=== PATIENT | female | born 1985 | race Caucasian/White ===

== ENCOUNTER 2016-10-24 03:33 | Emergency (ER) | payer OTHER ==
[2016-10-24 03:48] VITALS: BP 106/64; PULSE 84; TEMP 98.4; BMI 25.0
[2016-10-24] MEDS ORDERED: ACETAMINOPHEN 500 MG TABLET (FP) PO ONE (03:59)
--- NOTE | 2016-10-24 04:01 | PDOC ---
History of Present Illness - General Chief Complaint: Pain, Acute Stated Complaint: LEFT NECK PAIN INTO BACK Time Seen by Provider: 10/24/16 03:56 History Source: Patient Exam Limitations: No Limitations - History of Present Illness Initial Comments: 10/24/16 03:57 This is a 31-year-old female who comes in complaining of left-sided neck pain and spasm. Patient took Advil for the pain without relief. Patient is and doesn't know what else she can take. Patient denies any other complaints. PAST MEDICAL HISTORY: no significant history PAST SURGICAL HISTORY: no significant history FAMILY HISTORY: no pertinant history SOCIAL HISTORY: Pt lives with family and is employed. MEDICATIONS: reviewed ALLERGIES: As per nursing notes Review of Systems General: No fevers or chills, no weakness, no weight loss HEENT: No change in vision. No sore throat,. No ear pain, neck pain CardioVascular: No chest pain or shortness of breath Respiratory:No cough, or wheezing. Gastrointestinal: no nausea, vomitting, diarrhea or constipation, No rectal bleeding Genitourinary: No dysuria, hematuria, or frequency Musculoskeletal: No joint or muscle pain or swelling Neurologic: No headache, vertigo, dizziness or loss of consciousness Psychiatric: nor depression Skin: No rashes or easy bruising Endocrine: no increased thirst or abnormal weight change Allergic: no skin or latex allergy All other systems reviewed and normal GENERAL: The patient is awake, alert, and fully oriented, in no acute distress. HEAD: Normal with no signs of trauma. Neck: There is tenderness and paraspinal spasm on palpation of the left side of the neck muscles and left upper shoulder area. Neurovascular is intact. EYES: Pupils equal, round and reactive to light, extraocular movements intact, sclera anicteric, conjunctiva clear. EXTREMITIES: Normal range of motion, no edema. NEUROLOGICAL: Normal speech, normal gait. PSYCH: Normal mood, normal affect. SKIN: Warm, Dry, normal turgor, no rashes or lesions noted. Past History - Past Medical History Allergies/Adverse Reactions: Allergies Allergy/AdvReac Type Severity Reaction Status Date / Time No Known Allergies Allergy Verified 10/24/16 03:34 Home Medications: Ambulatory Orders NK [No Known Home Medication] 10/24/16 Kidney Stones: Yes (LITHOTRIPSY) - Reproductive History Is Patient Now?: Yes (#): 1 Para: 0 Cervical CA: No Dysfunctional Uterine Bleeding: No Ectopic : No Endometrial CA: No Polycystic Ovaries: No Therapeutic (s) & number: No Tubal Ligation: No Spontaneous : 0 - Immunization History Td Vaccination: Yes Immunization Up to Date: Yes - Psycho/Social/Smoking Cessation Hx Anxiety: Yes Suicidal Ideation: No Smoking Status: No Smoking History: Former smoker Have you smoked in the past 12 months: Yes Number of Cigarettes Smoked Daily: 0 If you are a former smoker, when did you quit?: 2 YEARS AGO Information on smoking cessation initiated: No 'Breaking Loose' booklet given: 10/01/14 Hx Alcohol Use: No Drug/Substance Use Hx: No Substance Use Type: None *Physical Exam - Vital Signs Last Vital Signs Temp Pulse Resp BP Pulse Ox 98.4 F 84 20 106/64 100 10/24/16 03:34 10/24/16 03:34 10/24/16 03:34 10/24/16 03:34 10/24/16 03:34 *DC/Admit/Observation/Transfer Diagnosis at time of Disposition: Strain of neck muscle Qualifiers: Encounter type: initial encounter Qualified Code(s): S16.1XXA - Strain of muscle, fascia and tendon at neck level, initial encounter - Discharge Dispostion Disposition: HOME Condition at time of disposition: Stable Admit: No - Patient Instructions Additional Instructions: For the pain you can take Tylenol or ibuprofen. Return to the emergency department immediately with ANY new, persistent or worsening symptoms. Continue any medications as previously prescribed by your physician. You should follow up with your primary doctor as soon as possible regarding today's emergency department visit. . Please make sure your doctor reviews the results of your emergency evaluation. Thank you for coming to the Emergency Department today for your care. It was a pleasure to see you today. Please note that your evaluation is INCOMPLETE until you follow-up with your doctor.
== END 2016-10-24 04:09 | disposition home or self-care (01) ==
LOC: FER 03:33
DX: O26.899 Other specified pregnancy related conditions, unspecified trimester (principal); S16.1XXA Strain of muscle, fascia and tendon at neck level, initial encounter; Z3A.00 Weeks of gestation of pregnancy not specified; Z87.891 Personal history of nicotine dependence; X58.XXXA Exposure to other specified factors, initial encounter; Y93.89 Activity, other specified; Y92.9 Unspecified place or not applicable
CPT/HCPCS: 99282-25

== ENCOUNTER 2017-04-23 08:06 | Inpatient (IN) | payer OTHER ==
[2017-04-23] MEDS ORDERED: ELECTROLYTE-148 SOLN 500 ML IV ONE (09:00)
[2017-04-23] MEDS ORDERED: [UNRECOGNIZED DRUG - OTHER] EP ONE (09:07)
[2017-04-23] MEDS ORDERED: BUPIVACAINE EP ONE (09:07)
[2017-04-23] MEDS ORDERED: FENTANYL EP ONE (09:07)
[2017-04-23] MEDS ORDERED: NALOXONE HCL 0.4 MG/ML VIAL IVPUSH PRN (09:28)
[2017-04-23] MEDS ORDERED: FENTANYL/BUPIVACAINE/NS/PF - PCEA - 50 ML DISP.SYRIN EP ONE ×3 (09:28→18:28)
[2017-04-23] MEDS: ELECTROLYTE-148 SOLN 1,000 ML IV SCH (09:30)
[2017-04-23] MEDS ORDERED: FENTANYL/BUPIVACAINE/NS/PF - PCEA - 50 ML DISP.SYRIN EP SCH (09:30)
[2017-04-23 10:09] VITALS: BMI 29.7
[2017-04-23] MEDS ORDERED: AMPICILLIN - 2 GM in SODIUM CHLORIDE 100 ML IVPB ONE (10:09)
--- NOTE | 2017-04-23 11:10 | HP ---
Past Medical History - Admission History of Present Illness: 31 yo @ 40 0/7 wks by first trimester ultrasound, EDC 04/23/17 complicated by: GBS positive - no PCN allergy Patient presents with chief complaints of contractions. She was previously seen as an outpatient for N/V and was found to be 1-2 cm. on presentation, she was 4 cm. She reports movement, denies leakage of fluid or vaginal bleeding Limitations to Obtaining History: No Limitations - Past Medical History Cardiovascular: No: HTN Pulmonary: No: Asthma Gastrointestinal: No: GERD Renal/: Yes: Renal Calculi ...: 1 ...Para: 0 ...Term: 0 ...: 0 ...Spon : 0 ...Induced : 0 ...Multiple Gestation: 0 ...LMP: 07/21/16 ... Weeks Gestation by Dates: 39.3 ...EDC by Dates: 04/27/17 ...EDC by Sono: 04/23/17 - Past Surgical History Hx Myomectomy: No Hx Transabdominal Cerclage: No Additional Surgical History: Lithotripsy - Smoking History Smoking history: Never smoked Have you smoked in the past 12 months: No Aproximately how many cigarettes per day: 0 If you are a former smoker, when did you quit?: 2 YEARS AGO - Alcohol/Substance Use Hx Alcohol Use: No - Social History History of Recent Travel: No Home Medications - Allergies Allergies/Adverse Reactions: Allergies Allergy/AdvReac Type Severity Reaction Status Date / Time No Known Allergies Allergy Verified 04/23/17 08:43 - Home Medications Home Medications: Ambulatory Orders Pnv No.95/Ferrous Fum/Folic AC [ Formula] 1 each PO DAILY 04/22/17 Family Disease History - Family Disease History Family History: Denies Review of Systems - Review of Systems Constitutional: reports: No Symptoms Cardiovascular: reports: No Symptoms Respiratory: reports: No Symptoms Gastrointestinal: reports: Nausea Genitourinary: reports: No Symptoms Musculoskeletal: reports: No Symptoms Integumentary: reports: No Symptoms Neurological: reports: No Symptoms Hematology/Lymphatic: reports: No Symptoms Psychiatric: reports: No Symptoms Physical Exam - Maternity Vital Signs: Vital Signs Temperature 98.4 F 04/23/17 10:00 Pulse Rate 57 L 04/23/17 10:45 Respiratory Rate 17 04/23/17 10:45 Blood Pressure 120/60 04/23/17 10:45 O2 Sat by Pulse Oximetry (%) 99 04/23/17 10:45 Constitutional: Yes: Well Nourished, No Distress, Calm Cardiovascular: Yes: Regular Rate and Rhythm - Abdominal Exam/OB Contractions: Yes Regularity: Regular Category: I - Vaginal Exam/OB Dilatation (cm): 4 Effacement (%): 80 Amniotic Membrane Status: Intact Station: -1 - Physical Exam Psychiatric: Yes: Alert, Oriented Hemorrhage Risk Assessment - Risk Factors Medium Risk Factors: Yes: None High Risk Factors: Yes: None Risk Score: 1 Risk Level: Medium Risk Assessment/Plan 31 yo active labor 1. Admit to L&D 2. Consents reviewed and signed 3. Routine labs collected and sent 4. GBS positive 5. Desires epidural 6. Category I FHT 7. Will proceed with expectant management
[2017-04-23] MEDS: AMPICILLIN - 1 GM in SODIUM CHLORIDE 100 ML IVPB SCH ×3 (14:19→23:56)
--- NOTE | 2017-04-23 14:49 | PN ---
Progress Note (short form) - Note Progress Note: had episode of lauro , to 90 with good return , salp electode applied , LT side , o2 , will revaluate cx 7 to 8 cm 80 vx 0, arom, minimal fluid
[2017-04-23] MEDS ORDERED: TUBERCULIN PPD 5 TU/0.1ML SYRINGE (IN PATIENT USE ONLY) ID ONE (17:30)
[2017-04-23] MEDS ORDERED: AMPICILLIN SODIUM 1 GM VIAL ONE (18:11)
--- NOTE | 2017-04-23 18:13 | PN ---
Progress Note (short form) - Note Progress Note: 6 pm, cx 9 cm, 100 vx 0 fhr cat 2
[2017-04-23] MEDS ORDERED: GENTAMICIN SO4 80 MG/2 ML VIAL ONE (19:37)
[2017-04-23] MEDS ORDERED: ACETAMINOPHEN 325 MG TABLET (FP) ONE (19:38)
[2017-04-23] MEDS ORDERED: GENTAMICIN 80 MG PREMIXED IVPB 80 MG/100 ML BAG IVPB ONE (20:00)
[2017-04-23] MEDS ORDERED: OXYTOCIN 30 UNITS in 0.9% NS 30 UNIT/500 ML INFUS.BAG IVPB SCH ×3 (20:00→23:30)
[2017-04-23] MEDS ORDERED: OXYTOCIN 30 UNITS in 0.9% NS 30 UNIT/500 ML INFUS.BAG IVPB ONE (20:07)
--- NOTE | 2017-04-23 20:10 | PN ---
Progress Note (short form) - Note Progress Note: cx full 100 vx +! fhr cat 1, had temp 100.6 , r/o possible chorio, advised getamycin, ,monitor heart
[2017-04-23] MEDS ORDERED: ACETAMINOPHEN 325 MG TABLET (FP) PO ONE (20:12)
[2017-04-23] MEDS ORDERED: OXYTOCIN 20 UNITS in 0.9% NS 20 UNIT/1,000 ML INFUS.BAG IV ONE (20:18)
[2017-04-23] MEDS ORDERED: LIDOCAINE HCL 1% PRESERVATIVE FREE - 30ML VIAL ONE (20:59)
[2017-04-23] MEDS ORDERED: OXYTOCIN 20 UNITS in 0.9% NS 20 UNIT/1,000 ML INFUS.BAG IV SCH (21:20)
[2017-04-23] MEDS ORDERED: METHYLERGONOVINE MALEATE 0.2 MG/1 ML AMP IM PRN (21:40)
[2017-04-23] MEDS ORDERED: BENZOCAINE 20% 57 GM BOTTLE TP PRN (21:40)
[2017-04-23] MEDS ORDERED: BENZOCAINE 28 GM HEMORRHOIDAL OINTMENT TP PRN (21:40)
[2017-04-23] MEDS ORDERED: WITCH HAZEL 50% (TUCKS) 40 PAD/JAR PAD TP PRN (21:40)
[2017-04-23] MEDS ORDERED: oxyCODONE HCL 5 MG TABLET PO PRN (21:40)
[2017-04-23] MEDS ORDERED: BISACODYL 10 MG SUPP.RECT RC PRN (21:40)
--- NOTE | 2017-04-23 21:47 | PN ---
Delivery - Delivery Vaginal Delivery: Spontaneous Type of Anesthesia: Local, Epidural (cx full vx ,head on perinium, head delivered , cord around neck times 4, reduced, ant ,and post shoulder deivered with no difficulty. 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
[2017-04-23 22:00] LABS: ARTERIAL BLOOD GAS BASE EXCESS -6.1 meq/l (-2-2)
[2017-04-23 22:23] LABS: VENOUS PC02 39.1 mmHg (38-52); VENOUS PH 7.32 (7.32-7.42); VENOUS PO2 29.6 mmHg (28-48)
[2017-04-23 22:27] LABS: ARTERIAL BLOOD GAS PCO2 65.6 mmHg (35-45); ARTERIAL BLOOD GAS pH 7.19 (7.35-7.45)
[2017-04-23 22:28] LABS: ARTERIAL BLD GAS O2 SATURATION 8.9 % (90-98.9); ARTERIAL BLOOD GAS PO2 10.3 mmHg (80-100)
[2017-04-23] MEDS: IBUPROFEN 600 MG TABLET (FP) PO PRN (23:52)
[2017-04-23] MEDS: ACETAMINOPHEN 325 MG TABLET (FP) PO PRN (23:54)
[2017-04-24 07:43] LABS: BASO % 0.2 % (0-2.0); EOS % 0.1 % (0-4.5); HEMATOCRIT 26.1 % (32.4-45.2); HEMOGLOBIN 8.3 GM/dL (10.7-15.3); LYMPH % 6.7 % (8-40); MCHC 31.7 g/dl (32.0-36.0); MEAN PLT VOLUME 8.6 fl (7.5-11.1); PLATELET COUNT 191 K/MM3 (134-434); RBC 3.07 M/mm3 (3.60-5.2); RDW 14.5 % (11.6-15.6); WHITE BLOOD COUNT 15.6 K/mm3 (4.0-10.0)
[2017-04-24] MEDS: FERROUS SO4 325 MG TABLET (FP) PO SCH ×2 (08:00→17:30)
[2017-04-24] MEDS: PRENATAL VITAMINS W/ FOLIC ACID TABLET (FP) PO SCH (09:49)
[2017-04-24] MEDS: IBUPROFEN 600 MG TABLET (FP) PO PRN ×2 (10:39→20:53)
[2017-04-24] MEDS: ACETAMINOPHEN 325 MG TABLET (FP) PO PRN ×2 (10:41→20:55)
[2017-04-24] MEDS: ELECTROLYTE-148 SOLN 1,000 ML IV SCH (12:09)
--- NOTE | 2017-04-24 13:59 | PN ---
Progress Note (short form) - Note Progress Note: ppd 1 doing well, ambulating, no excess vaginal bleeding CBC, BMP 04/24/17 07:02 Last Vital Signs Temp Pulse Resp BP Pulse Ox 97.4 F L 60 18 117/76 100 04/24/17 08:43 04/24/17 08:43 04/24/17 08:43 04/24/17 08:43 04/23/17 21:45 abdomen soft, uterus firm ,non tender lochia mild no calf tenderness impression ppd 1 anemia , asymptomatic plan iron, vit
[2017-04-24] MEDS ORDERED: SENNOSIDES/DOCUSATE COMBO (SENNA PLUS) TABLET (UD) PO PRN (22:00)
[2017-04-25] MEDS: FERROUS SO4 325 MG TABLET (FP) PO SCH (08:14)
[2017-04-25] MEDS: IBUPROFEN 600 MG TABLET (FP) PO PRN (08:14)
[2017-04-25] MEDS: ACETAMINOPHEN 325 MG TABLET (FP) PO PRN (08:15)
[2017-04-25] MEDS: PRENATAL VITAMINS W/ FOLIC ACID TABLET (FP) PO SCH (09:47)
[2017-04-25 09:52] VITALS: BP 129/78; PULSE 64; TEMP 97.2
== END 2017-04-25 09:50 | disposition home or self-care (01) | DRG 560 ==
LOC: JLDR 08:06 → J3W 23:15
PROVIDERS: ADMIT Obstetrics & Gynecology; ATTEND Obstetrics & Gynecology
PROC: 0W8NXZZ Division of Female Perineum, External Approach (ICD-10-PCS; principal; 2017-04-23)
PROC: 10E0XZZ Delivery of Products of Conception, External Approach (ICD-10-PCS; 2017-04-23)
DX: O48.0 Post-term pregnancy (principal); O99.824 Streptococcus B carrier state complicating childbirth; O69.81X0 Labor and delivery complicated by cord around neck, without compression, not applicable or unspecified; O90.81 Anemia of the puerperium; Z37.0 Single live birth; Z3A.40 40 weeks gestation of pregnancy
CPT/HCPCS: 36415; 36600; 59409; 82803; 85025; J3490